=== PATIENT | male | born 1960 | race Two or more races ===

== ENCOUNTER → 2019-03-12 | Day surgery (SDC) | payer OTHER ==
[~2019-03-12] VITALS: Ht 158 cm; Wt 63.5 kg
[~2019-03-12] MED LIST: FLUMAZENIL 0.1 MG/ML INJ 10ML MDV IV ONE; MIDAZOLAM HCL 5 MG/ML-1ML VIAL ONE; NALOXONE HCL 0.4 MG/ML VIAL ONE; SODIUM CHLORIDE LOCK 10 ML ONE; diphenhdrAMINE HCL 50 MG/1 ML VL ONE; fentaNYL CITRATE 100 MCG/2 ML VL ONE
[2019-03-12 08:11] LABS: Basophils # (auto) 0 uL; Basophils % (auto) 0.9 % (0.0-2.0); Eosinophils # (auto) 0.1 uL; Hematocrit 45.2 % (41.0-53.0); Hemoglobin 15.8 g/dL (13.5-17.5); Lymphocytes # (auto) 1.9 uL; Lymphocytes % (auto) 37.7 % (10.0-50.0); Mean Corpuscular Volume 94.2 fL (80.0-100.0); Monocytes # (auto) 0.5 uL; Monocytes % (auto) 10.9 % (0.0-12.0); Neutrophils # (auto) 2.4 uL; Neutrophils % (auto) 48.5 % (37.0-80.0); Nucleated Red Blood Cells % 0.1 %; Platelet Count (auto) 216 10^3/uL (140-450); Red Cell Distribution Width 13.5 % (11.8-14.3)
[2019-03-12 08:31] LABS: INR 1.08 (0.9-1.15); Partial Thromboplastin Time 27.7 sec (23.64-32.05)
[2019-03-12 09:58] VITALS: BP 138/90
== END | disposition home or self-care (01) ==
LOC: GI 05:50
PROVIDERS: ATTEND Internal Medicine Gastroenterology
DX: K63.5 Polyp of colon (principal); K64.8 Other hemorrhoids
CPT/HCPCS: 36415; 45380; 85025; 85610; 85730; 88305; J1200; J2250; J3010; J7030; 99152